=== PATIENT | male | born 1960 | race Caucasian/White ===

== ENCOUNTER 2017-07-13 13:01 | Emergency (ER) | payer OTHER, BC ==
[2017-07-13 13:10] VITALS: BP 155/72; BMI 28.8
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
== END 2017-07-13 14:00 | disposition home or self-care (01) ==
LOC: ER 13:15
DX: Z04.3 Encounter for examination and observation following other accident (principal); V89.2XXA Person injured in unspecified motor-vehicle accident, traffic, initial encounter
CPT/HCPCS: 99281; 99282